=== PATIENT | female | born 1945 | race Caucasian/White ===

== ENCOUNTER 2020-12-29 10:04 | Outpatient (CLI) | payer MEDICARE, OTHER ==
[2020-12-29 15:55] LABS: BASOPHILS % (AUTO) 0.7 %; EOSINOPHILS # (AUTO) 0.3 10^3/uL (0.0-0.7); EOSINOPHILS % (AUTO) 4.8 %; HCT - HEMATOCRIT 42.7 % (37.0-47.0); HGB - HEMOGLOBIN 13.9 g/dL (12.0-16.0); LYMPHOCYTES # (AUTO) 1.4 10^3/uL (1.5-3.5); MEAN CORPUSCULAR HEMOGLOBIN 34.2 pg (27.0-31.0); MEAN CORPUSCULAR HGB CONC 32.6 g/dL (32.0-36.0); MEAN CORPUSCULAR VOLUME 105.2 fL (81.0-99.0); MEAN PLATELET VOLUME 9.5 fL (7.9-10.8); MONOCYTES # (AUTO) 0.5 10^3/uL (0.0-1.0); MONOCYTES % (AUTO) 8.5 %; NEUTROPHILS # (AUTO) 3.4 10^3/uL (1.5-6.6); NEUTROPHILS % (AUTO) 60.5 %; PLT - PLATELET COUNT 212 10^3/uL (130-450); RED BLOOD COUNT 4.06 10^6/uL (4.20-5.40); RED CELL DISTRIBUTION WIDTH 12.2 % (12.0-15.0); WHITE BLOOD COUNT 5.7 x10^3/uL (4.8-10.8)
[2020-12-29 16:24] LABS: THYROID STIMULATING HORMONE 3.14 uIU/mL (0.34-5.60)
[2020-12-29 16:35] LABS: ALBUMIN 4.4 g/dL (3.2-5.5); ALBUMIN/GLOBULIN RATIO 1.6 (1.0-2.2); ALKALINE PHOSPHATASE 83 IU/L (42-121); ALT ALANINE AMINOTRANSFERASE 22 IU/L (10-60); AST ASPARTATE AMINOTRANSFERASE 20 IU/L (10-42); BILIRUBIN,TOTAL 0.7 mg/dL (0.2-1.0); BUN - BLOOD UREA NITROGEN 21 mg/dL (6-20); CALCIUM 9.4 mg/dL (8.5-10.3); CARBON DIOXIDE - CO2 28 mmol/L (21-32); CHLORIDE 103 mmol/L (101-111); CHOL/HDL RATIO 3.2 (<4.4); CHOLESTEROL 241 mg/dL; CREATININE 0.8 mg/dL (0.4-1.0); GFR - MDRD 70 (>89); GLUCOSE 121 mg/dL (70-100); HDL CHOLESTEROL 76 mg/dL; LDL CHOLESTEROL,CALCULATED 141 mg/dL; LDL/HDL RATIO 1.9 (<4.4); POTASSIUM 4.6 mmol/L (3.5-5.0); SODIUM 138 mmol/L (135-145); TOTAL PROTEIN 7.2 g/dL (6.7-8.2); TRIGLYCERIDES 122 mg/dL; VLDL CHOLESTEROL 24 mg/dL
== END 2020-12-29 10:05 | disposition home or self-care (01) ==
LOC: LAB.S 10:04
PROVIDERS: ATTEND Registered Nurse
DX: M79.7 Fibromyalgia (principal); G43.909 Migraine, unspecified, not intractable, without status migrainosus; F41.9 Anxiety disorder, unspecified; F32.9 Major depressive disorder, single episode, unspecified
CPT/HCPCS: 36415; 80053; 80061; 83721; 84443; 85025

== ENCOUNTER 2021-07-25 12:34 | Outpatient (CLI) | payer MEDICARE, OTHER ==
--- NOTE | 2021-07-25 13:08 | XRAY Report ---
PROCEDURE: Cervical Spine 2 View INDICATIONS: M54.2 CERVICALGIA TECHNIQUE: 3 view(s) of the cervical spine were acquired. COMPARISON: None. FINDINGS: Bones: No fractures or dislocations to the T1 level. The lateral masses of C1 appear intact on the odontoid view. No suspicious bony lesions. At least moderate degenerative changes of the cervical s pine are seen with endplate osteophytosis and uncovertebral/facet arthrosis. Mild to moderate disc he ight loss, most prominent at C2-3 and C4-7. Straightening of the cervical lordosis, which may be due to spasm or positioning. Minimal retrolisthe sis at C6-7. Soft tissues: No prevertebral soft tissue swelling. IMPRESSION: No acute osseous abnormality. Reviewed by: Shantanu Win MD on 07/25/2021 1:07 PM PDT Approved by: Shantanu Win MD on 07/25/2021 1:07 PM PDT Station ID: [id number]
== END 2021-07-25 12:35 | disposition home or self-care (01) ==
LOC: DI.S 12:34
PROVIDERS: ATTEND Physician Assistant
DX: M54.2 Cervicalgia (principal)

== ENCOUNTER 2022-05-08 10:03 | Emergency (ER) | payer MEDICARE ==
[2022-05-08] MEDS ORDERED: PROCHLORPERAZINE 5 MG TABLET PO STA (10:39)
[2022-05-08] MEDS ORDERED: diphenhydrAMINE 25 MG CAPSULE PO STA (10:41)
--- NOTE | 2022-05-08 10:44 | ED Physician Documentation ---
PD HPI HEAD INJURY - Stated complaint Stated Complaint: HEAD PX/GLF - Chief complaint Chief Complaint: Trauma Hd/Nk - Additional information Additional information: Patient is a 76-year-old female presenting to the emergency department with h eadache and neck pain after fall that occurred on Saturday. Reports was walking down stairs, tripped on a dog toy, fell backwards and struck her head and then slid down 5 steps. Denies any loss of consciousness use of blood thinning medications. Since that time has had persistent pressure in the posterior aspect of her head. Reports a history of migraine headaches but states that this feels different from her typical migraines. Also endorses for some neck stiffness. Denies for any blurred vision, double vision, periods of confusion, difficulties with speech or language, discoordination or balance issues. Denies any history of previous concussions. Review of Systems Ten Systems: 10 systems reviewed and negative Constitutional: denies: Fever Eyes: denies: Loss of vision Ears: denies: Loss of hearing Nose: denies: Rhinorrhea / runny nose Throat: denies: Dental pain / toothache Cardiac: denies: Chest pain / pressure Respiratory: denies: Dyspnea GI: denies: Abdominal Pain : denies: Dysuria Musculoskeletal: reports: Neck pain Neurologic: reports: Headache, Head injury PD PAST MEDICAL HISTORY - Allergies Allergies/Adverse Reactions: Allergies Allergy/AdvReac Type Severity Reaction Status Date / Time latex Allergy Unknown Verified 05/08/22 10:20 PD ED PE NORMAL - Vitals Vital signs reviewed: Yes - General General: Alert and oriented X 3, No acute distress - HEENT HEENT: Atraumatic, PERRL, EOMI, Ears normal - Neck Neck: Supple, no meningeal sign, No bony TTP, C-Spine cleared by NEXUS criteria - Cardiac Cardiac: RRR, No gallop - Respiratory Respiratory: No respiratory distress, Clear bilaterally - Abdomen Abdomen: Normal bowel sounds, Non tender - Female Female : Deferred - Rectal Rectal: Deferred - Extremities Extremities: No deformity - Neuro Neuro: Alert and oriented X 3, exhaust and muffler fitter 2-12 intact, No motor deficit, No sensory deficit, Normal speech, Other (Romberg negative) Results - Vitals Vitals: Vital Signs - 24 hr 05/08/22 05/08/22 10:17 11:57 Temperature 36.7 C 36.8 C Heart Rate 93 80 Respiratory 16 20 Rate Blood Pressure 161/70 H 153/83 H O2 Saturation 99 94 Oxygen O2 Source Room air PD MEDICAL DECISION MAKING - ED course Complexity details: reviewed results, d/w patient, d/w family ED course: Patient is 76-year-old female presenting to the emergency department with persistent headache after closed head injury that occurred a few days ago. Afebrile, he medically stable. Nonfocal nonlateralizing neurologic exam. CT head and C-spine negative for Significant or life threatening injury. Patient given Compazine, Roxicodone in the emergency department for symptomatic management. Symptoms concerning for low-grade concussion. Will discharge with Instructions for period of cognitive rest, encourage regular Motrin, Tylenol for ongoing symptoms and encourage careful follow-up with primary care. Otherwise clear return precautions and follow-up instructions given prior to discharge. Departure - Departure Disposition: 01 Home, Self Care Clinical Impression: Concussion, Closed head injury Instructions: ED Head Injury Closed Comments: Thank you for allowing us to care for you today at [facility]. Testing performed in the emergency department including the CT scan of your head and cervical spine were reassuring. However your symptoms are concerning for low-grade concussion. I recommend regular alternating Motrin and Tylenol at home for ongoing headache and pain control. As we discussed would like you to begin a period of 24 hours of cognitive rest. Please avoid excessive stimulation during this time. Its important you make a follow-up appoint with your primary care doctor soon as possible. If it anytime you develop any new or worsening symptoms please not hesitate to return.
--- NOTE | 2022-05-08 12:04 | CT Report ---
PROCEDURE: HEAD WO INDICATIONS: Fall 2x days ago, Concussive symptoms TECHNIQUE: Noncontrast 4.5 mm thick angled axial sections acquired from the foramen magnum to the vertex. For r adiation dose reduction, the following was used: automated exposure control, adjustment of mA and/or kV according to patient size. COMPARISON: None. FINDINGS: Image quality: Excellent. CSF spaces: Basal cisterns are patent. No extra-axial fluid collections. Mild overall volume loss. Ventricles are symmetric. Brain: No midline shift. No intracranial masses or hemorrhage. Bradford-white matter interface is norm al. Skull and face: Calvarium and visualized facial bones are intact, without suspicious lesions. Right vertex scalp hematoma. Sinuses: Visualized sinuses and mastoids are clear. IMPRESSION: No acute intracranial abnormality. Right vertex scalp hematoma. Reviewed by: José Luis Shepard MD on 05/08/2022 12:03 PM PDT Approved by: José Luis Shepard MD on 05/08/2022 12:03 PM PDT Station ID: [id number]
--- NOTE | 2022-05-08 12:06 | CT Report ---
PROCEDURE: CERVICAL SPINE WO INDICATIONS: Fall, neck pain TECHNIQUE: Noncontrast 3 mm thick sections acquired from the skull base to the T4 level. Sagittal and coronal r eformats were then constructed. For radiation dose reduction, the following was used: automated exp osure control, adjustment of mA and/or kV according to patient size. COMPARISON: Radiograph 07/25/2021 FINDINGS: Image quality: Excellent. Bones: No fractures or dislocations. Visualized superior ribs are intact. Reversal of the normal c ervical lordosis. No spondylolisthesis. Moderate to severe spondylosis. Soft tissues: Prevertebral soft tissues are normal in thickness. No paravertebral hematomas. No ap ical pneumothoraces. Apical lung scarring. IMPRESSION: No acute fracture or traumatic subluxation of the cervical spine. Moderate to severe cervical spondyl osis. Reviewed by: José Luis Shepard MD on 05/08/2022 12:05 PM PDT Approved by: José Luis Shepard MD on 05/08/2022 12:05 PM PDT Station ID: [id number]
[2022-05-08] MEDS ORDERED: oxyCODONE 5 MG TABLET PO STA (12:40)
[2022-05-08 12:57] VITALS: BP 149/78
== END 2022-05-08 13:01 | disposition home or self-care (01) ==
LOC: ED 10:03
DX: S06.0X0A Concussion without loss of consciousness, initial encounter (principal); W10.9XXA Fall (on) (from) unspecified stairs and steps, initial encounter
CPT/HCPCS: 70450; 72125; 99282; 99284; A9270

== ENCOUNTER 2022-10-12 09:09 | Outpatient (CLI) | payer MEDICARE | END 2022-10-12 09:10 | disposition short-term general hospital (02) | LOC: EMS 09:09 | DX: R00.2 Palpitations (principal) | CPT/HCPCS: A0425; A0429 ==

== ENCOUNTER 2022-12-09 21:38 | Outpatient (CLI) | payer MEDICARE | END 2022-12-09 23:59 | disposition critical access hospital (66) | LOC: EMS 21:38 | DX: R10.9 Unspecified abdominal pain (principal) | CPT/HCPCS: A0425; A0429 ==

== ENCOUNTER 2022-12-09 22:11 | Emergency (ER) | payer MEDICARE ==
--- NOTE | 2022-12-09 22:20 | ED Physician Documentation ---
PD HPI ABD PAIN - Stated complaint Stated Complaint: ABD PX - Chief complaint Chief Complaint: Abd Pain - History obtained from History obtained from: Patient - Additional information Additional information: 77-year-old woman with history of alcohol abuse, A-fib, chronic abdominal pain, presents with worsening abdominal pain over the past couple of weeks. Epigastric, nonradiating, associated with nonbloody nonbilious nausea and vomiting. Denies hemoptysis, dark stools or blood in the stool. no hx abdominal surgeries. Review of Systems Constitutional: denies: Fever GI: reports: Abdominal Pain. denies: Diarrhea, Bloody / black stool PD PAST MEDICAL HISTORY - Present Medications Home Medications: Ambulatory Orders Medication Instructions Recorded Confirmed Pantoprazole Sodium [Protonix] 20 mg PO QDAC #30 tab 12/10/22 - Allergies Allergies/Adverse Reactions: Allergies Allergy/AdvReac Type Severity Reaction Status Date / Time latex Allergy Unknown Verified 12/09/22 22:23 PD ED PE NORMAL - Vitals Vital signs reviewed: Yes - General General: Alert and oriented X 3, No acute distress - HEENT HEENT: Atraumatic, PERRL, EOMI - Cardiac Cardiac: RRR - Respiratory Respiratory: No respiratory distress, Clear bilaterally - Abdomen Abdomen: Non tender, Non distended, Other (epigastric discomfort to palpation) Results - Vitals Vitals: Oxygen O2 Source Room air - Labs Labs: Laboratory Tests 12/09/22 12/09/22 12/09/22 22:30 22:30 23:00 WBC 7.0 RBC 3.94 L Hgb 13.6 Hct 41.2 MCV 104.6 H MCH 34.5 H MCHC 33.0 RDW 12.2 Plt Count 212 MPV 8.9 Neut # (Auto) 4.5 Lymph # (Auto) 1.8 [place] # (Auto) 0.5 Eos # (Auto) 0.2 Baso # (Auto) 0.1 Absolute Nucleated RBC 0.00 Nucleated RBC % 0.0 Sodium 136 Potassium 3.7 Chloride 100 L Carbon Dioxide 25 Anion Gap 11.0 BUN 13 Creatinine 0.7 Estimated GFR (MDRD) 82 L Glucose 104 H Calcium 9.5 Total Bilirubin 0.7 AST 19 ALT 19 Alkaline Phosphatase 82 Total Protein 6.9 Albumin 4.0 Globulin 2.9 Albumin/Globulin Ratio 1.4 Lipase 54 H Urine Color YELLOW Urine Clarity CLEAR Urine pH 6.0 Ur Specific [place] <=1.005 Urine Protein NEGATIVE Urine Glucose (UA) NEGATIVE Urine Ketones NEGATIVE Urine Occult Blood NEGATIVE Urine Nitrite NEGATIVE Urine Bilirubin NEGATIVE Urine Urobilinogen 0.2 (NORMAL) Ur Leukocyte Esterase NEGATIVE Ur Microscopic Review NOT INDICATED Urine Culture Comments NOT INDICATED PD Medical Decision Making - ED course ED course: 77yF p/w acute on chronic abdominal pain, likely attributable to gastritis vs PUD 2/2 etoh. CBC and abdominal panel ordered. No emergent cause for symptoms was uncovered. patient was treated symptomatically with relief of symptoms. protonix rx sent. plan to f/u outpatient pcp and GI for endoscopy. return precautions given. Departure - Departure Disposition: Home, Self Care Clinical Impression: Abdominal pain Condition: Good Instructions: Abdominal Pain Prescriptions: Pantoprazole Sodium [Protonix] 20 mg PO QDAC #30 tab Comments: You were seen in the emergency department for abdominal pain. Your lab work including a CBC and abdominal panel uncovered no emergent cause for your symptoms. Please follow-up with your primary care provider and with GI. Return to the emergency department for new or worsening symptoms or other concerns. Electronic prescription for Protonix was sent to [facility] in [place]. Discharge Date/Time: 12/10/22 01:25
[2022-12-09] MEDS ORDERED: SODIUM CHLORIDE 0.9% 500 ML IV STA (22:22)
[2022-12-09] MEDS ORDERED: FAMOTIDINE 20 MG/2 ML VIAL IVP STA (22:23)
[2022-12-09] MEDS ORDERED: MAG HYDROX/AL HYDROX/SIMETH 30 ML UDC PO STA (22:23)
[2022-12-09] MEDS ORDERED: LIDOCAINE VISCOUS 2% 15 ML UDC MM STA (22:23)
[2022-12-09] MEDS ORDERED: diphenhydrAMINE ELIXIR 25 MG/10 ML UDC PO STA (22:24)
[2022-12-09 22:35] LABS: BASOPHILS # (AUTO) 0.1 10^3/uL (0.0-0.1); BASOPHILS % (AUTO) 0.9 %; EOSINOPHILS # (AUTO) 0.2 10^3/uL (0.0-0.7); EOSINOPHILS % (AUTO) 2.7 %; HCT - HEMATOCRIT 41.2 % (37.0-47.0); HGB - HEMOGLOBIN 13.6 g/dL (12.0-16.0); LYMPHOCYTES # (AUTO) 1.8 10^3/uL (1.5-3.5); LYMPHOCYTES % (AUTO) 25.8 %; MEAN CORPUSCULAR HEMOGLOBIN 34.5 pg (27.0-31.0); MEAN CORPUSCULAR VOLUME 104.6 fL (81.0-99.0); MEAN PLATELET VOLUME 8.9 fL (7.9-10.8); MONOCYTES # (AUTO) 0.5 10^3/uL (0.0-1.0); MONOCYTES % (AUTO) 6.6 %; NEUTROPHILS # (AUTO) 4.5 10^3/uL (1.5-6.6); NEUTROPHILS % (AUTO) 63.9 %; PLT - PLATELET COUNT 212 10^3/uL (130-450); RED BLOOD COUNT 3.94 10^6/uL (4.20-5.40); RED CELL DISTRIBUTION WIDTH 12.2 % (12.0-15.0)
[2022-12-09 22:50] LABS: ALBUMIN/GLOBULIN RATIO 1.4 (1.0-2.2); BILIRUBIN,TOTAL 0.7 mg/dL (0.2-1.0); CALCIUM 9.5 mg/dL (8.5-10.3); CREATININE 0.7 mg/dL (0.4-1.0); POTASSIUM 3.7 mmol/L (3.5-5.0); TOTAL PROTEIN 6.9 g/dL (6.7-8.2)
[2022-12-09 23:41] LABS: BILIRUBIN,URINE NEGATIVE (NEGATIVE); GLUCOSE, URINE (UA) NEGATIVE (NEGATIVE); KETONES,URINE (UA) NEGATIVE (NEGATIVE); LEUKOCYTE ESTERASE, URINE NEGATIVE (NEGATIVE); NITRITE,URINE NEGATIVE (NEGATIVE); OCCULT BLOOD,URINE NEGATIVE (NEGATIVE); PROTEIN,URINE NEGATIVE (NEGATIVE); UROBILINOGEN,URINE 0.2 (NORMAL) E.U./dL (NORMAL)
[2022-12-09 23:42] LABS: CLARITY,URINE CLEAR (CLEAR)
[2022-12-10 00:59] VITALS: BP 107/84
== END 2022-12-10 01:25 | disposition home or self-care (01) ==
LOC: EDUNIT# → ED 22:11
DX: R10.13 Epigastric pain (principal); I48.91 Unspecified atrial fibrillation
CPT/HCPCS: 36415; 80053; 81003; 83690; 85025; 96361; 96374; 99284; A9270; 81001; 87086